=== PATIENT | male | born 1985 | race American Indian/Alaskan Native ===

== ENCOUNTER 2021-05-27 10:19 | Emergency (ER) | payer OTHER ==
[2021-05-27 11:12] VITALS: BP 113/88
--- NOTE | 2021-05-27 16:39 | Emergency Department Report ---
ED Dizziness HPI - General Chief Complaint: Dizziness Stated Complaint: POSSIBLE VERTIGO Time Seen by Provider: 05/27/21 16:37 Source: patient Mode of arrival: Ambulatory Limitations: No Limitations - History of Present Illness Initial Comments: Patient is a pleasant 35-year-old male that comes to the emergency room with his acute on chronic vertigo. He states this episode started last night. When he stands quickly or when he turns his head to right to left he has a sensation of spinning with nausea. Patient sees a neurologist because he has a family history of MS. He has not been diagnosed with MS. He has an MRI scheduled soon. He has had CT scans that were negative. Patient denies fever or chills. He denies any chest pain or shortness of breath. He is ambulatory to the ER in no acute distress -: Gradual, month(s) Timing: awoke with symptoms Description: "room spinning" History of Same: Yes History of Trauma: No Severity: mild Improves With: remaining still Worsens With: movement Associated Symptoms: denies other symptoms - Related Data Previous Rx's Medication Instructions Recorded Last Taken Type Meclizine [Antivert] 25 mg PO TID PRN #20 05/27/21 Unknown Rx Allergies Allergy/AdvReac Type Severity Reaction Status Date / Time No Known Allergies Allergy Verified 05/27/21 17:02 ED Review of Systems ROS: Stated complaint: POSSIBLE VERTIGO Other details as noted in HPI Comment: All other systems reviewed and negative ED Past Medical Hx - Past Medical History Previous Medical History?: Yes Additional medical history: Vertigo - Surgical History Past Surgical History?: Yes Additional Surgical History: Knee surgery - Family History Family history: other (Family history of MS) - Social History Smoking Status: Never Smoker Substance Use Type: None - Medications Home Medications: Home Medications Medication Instructions Recorded Confirmed Last Taken Type Meclizine [Antivert] 25 mg PO TID PRN #20 05/27/21 Unknown Rx ED Physical Exam - General Limitations: No Limitations General appearance: alert, in no apparent distress - Head Head exam: Present: atraumatic, normocephalic - Eye Eye exam: Present: normal appearance, other (Vertigo induced with rapid head movements to the right or to the left. Associated with nystagmus.) - ENT ENT exam: Present: mucous membranes moist - Neck Neck exam: Present: normal inspection - Respiratory Respiratory exam: Present: normal lung sounds bilaterally. Absent: respiratory distress - Cardiovascular Cardiovascular Exam: Present: regular rate, normal rhythm. Absent: systolic murmur, diastolic murmur, rubs, gallop - GI/Abdominal GI/Abdominal exam: Present: soft, normal bowel sounds - Rectal Rectal exam: Present: deferred - Extremities Exam Extremities exam: Present: normal inspection - Back Exam Back exam: Present: normal inspection - Neurological Exam Neurological exam: Present: alert, oriented X3 - Psychiatric Psychiatric exam: Present: normal affect, normal mood - Skin Skin exam: Present: warm, dry, intact, normal color. Absent: rash ED Course Vital Signs 05/27/21 11:09 Temperature 97.8 F Pulse Rate 82 Respiratory 20 Rate Blood Pressure 113/88 [Left] O2 Sat by Pulse 100 Oximetry ED Medical Decision Making - EKG Data -: EKG Interpreted by Me EKG shows normal: sinus rhythm Rate: normal - EKG Data When compared to previous EKG there are: no significant change Interpretation: no acute changes - Medical Decision Making Vital Signs (72 hours) 05/27/21 11:09 Temperature 97.8 F Pulse Rate 82 Respiratory 20 Rate Blood Pressure 113/88 [Left] O2 Sat by Pulse 100 Oximetry Able to reproduce vertigo in ER. Patient given Zyrtec, Zofran and Antivert. His symptoms completely resolved. At that point I was unable to reproduce the vertigo. Patient being discharged home with discharge plan of care including diet, activity, medications and follow-up. He will follow-up with his neurologist. Patient verbalizes understanding of plan of care. - Differential Diagnosis Acute on chronic vertigo Critical care attestation.: If time is entered above; I have spent that time in minutes in the direct care of this critically ill patient, excluding procedure time. ED Disposition Clinical Impression: Vertigo Disposition: 01 HOME / SELF CARE / HOMELESS Is pt being admited?: No Does the pt Need Aspirin: No Condition: Stable Instructions: Vertigo, [id number] Additional Instructions: Follow-up for your MRI. Continue to follow with your neurologist. Let him know you were in the ER today. Diet and activity as tolerated Stay well-hydrated Make slow position changes Prescriptions: Meclizine [Antivert] 25 mg PO TID PRN #20 PRN Reason: Vertigo Referrals: BENITEZ ZAPATA MD [Other] - 3-5 Days Time of Disposition: 17:30
[2021-05-27] MEDS ORDERED: MECLIZINE 25 MG TAB PO SCH (17:00)
[2021-05-27] MEDS ORDERED: ONDANSETRON 4 MG ODT TAB PO SCH (17:00)
[2021-05-27] MEDS ORDERED: CETIRIZINE 10 MG TAB PO SCH (17:00)
--- NOTE | 2021-05-28 11:30 | Electrocardiograph Report ---
[facility] Test Date: 2021-05-27 Test Time: 11:20:23 Pat Name: SHARON TSE Department: Room: Gender: M Intr[employer] Developer: TECH : 1985 Requested By: KEYUR AVILA Order Number: [id number] Reading MD: Hardeep Reyes Measurements Intervals [place] Rate: 82 P: 66 WI: 179 QRS: 22 QRSD: 89 T: 51 QT: 368 QTc: 431 Interpretive Statements Sinus rhythm No previous ECG available for comparison Electronically Signed On 05-28-2021 11:29:54 EDT by Hardeep Reyes
== END 2021-05-27 17:20 | disposition home or self-care (01) ==
LOC: ED 10:19
DX: R42 Dizziness and giddiness (principal)
CPT/HCPCS: 93005; 99282; J3490; Q0162